=== PATIENT | female | born 1940 | race Caucasian/White ===

== ENCOUNTER 2016-12-16 19:14 | Emergency (ER) | payer MEDICARE, OTHER ==
[2016-12-16 19:22] VITALS: BMI 28.4
[2016-12-16 19:27] VITALS: TEMP 98.7
[2016-12-16] MEDS ORDERED: TDAP Vaccine 0.5 mL Syr IM ONE (19:33)
--- NOTE | 2016-12-16 19:33 | ED PDOC ---
Arrival/HPI <Ant Gaming - Last Filed: 12/16/16 20:04> - General Historian: Patient <Marvin Berry - Last Filed: 12/25/16 14:41> - General Time Seen by Provider: 12/16/16 19:24 - History of Present Illness Narrative History of Present Illness (Text): 12/16/16 19:36 76 y/o female, pmh including htn/dm, allergic to penicillin and macrolides, last tetanus over 10 years ago, c/o cat scratch on the lt. vasquez x 1 day. Pt. stated that her cat (stated that her cat is indoor cat for over 15 years, no rabies and stated that belief her rabies is up to date) scratch the lt. vasquez superficially, no numbness or tingling, no palpitation, no night sweat, no dizziness, no other medical or psychological complaints. (Marvin Berry) Past Medical History - Provider Review Nursing Documentation Reviewed: Yes - Infectious Disease Hx of Infectious Diseases: None - Cardiac Hx KS: Yes (x2 stents) Hx Hypertension: Yes - Endocrine/Metabolic Hx Diabetes Mellitus Type 2: Yes - Psychiatric Hx Substance Use: No - Surgical History Hx Cardiac Catheterization: Yes (x2 stents) Hx Orthopedic Surgery: Yes (L knee torn meniscus) - Anesthesia Hx Anesthesia: Yes Hx Anesthesia Reactions: No Hx Malignant Hyperthermia: No <Marvin Berry - Last Filed: 12/25/16 14:41> Family/Social History - Physician Review Nursing Documentation Reviewed: Yes Family/Social History: Unknown Family HX Smoking Status: Never Smoked Hx Alcohol Use: No Hx Substance Use: No <Marvin Berry - Last Filed: 12/25/16 14:41> Allergies/Home Meds <Ant Gaming - Last Filed: 12/16/16 20:04> <Marvin Berry - Last Filed: 12/25/16 14:41> Allergies/Adverse Reactions: Allergies Penicillins Allergy (Verified 12/16/16 19:26) SWELLING streptomycin Allergy (Verified 12/16/16 19:26) SWELLING Review of Systems - Review of Systems Constitutional: absent: Fatigue, Fevers Eyes: absent: Vision Changes ENT: absent: Hearing Changes Respiratory: absent: SOB, Cough Cardiovascular: absent: Chest Pain Gastrointestinal: absent: Abdominal Pain, Nausea, Vomiting Skin: Other (abrasion). absent: Rash, Pruritis, Abscess, Ulcer Neurological: absent: Headache, Dizziness <Marvin Berry - Last Filed: 12/25/16 14:41> Physical Exam Vital Signs Reviewed: Yes Temperature: Afebrile Blood Pressure: Hypertensive Pulse: Regular Respiratory Rate: Normal Appearance: Positive for: Well-Appearing, Non-Toxic, Comfortable Pain Distress: None Mental Status: Positive for: Alert and Oriented X 3 - Systems Exam Head: Present: Atraumatic, Normocephalic Pupils: Present: PERRL Extroacular Muscles: Present: EOMI Conjunctiva: Present: Normal Mouth: Present: Moist Mucous Membranes Neck: Present: Normal Range of Motion Respiratory/Chest: Present: Clear to Auscultation, Good Air Exchange. No: Respiratory Distress, Accessory Muscle Use Cardiovascular: Present: Regular Rate and Rhythm, Normal S1, S2. No: Murmurs Abdomen: Present: Normal Bowel Sounds. No: Tenderness, Distention, Peritoneal Signs Back: Present: Normal Inspection Upper Extremity: Present: Normal Inspection. No: Cyanosis, Edema Lower Extremity: Present: Normal Inspection, Other (Lt. anterior Vasquez visible superficial approx. 4cm abrasion with no laceration or avulsion, no bony tenderness. ). No: Edema Neurological: Present: GCS=15, Speech Normal, Motor Func Grossly Intact, Gait Normal, Memory Normal Skin: Present: Warm, Dry, Normal Color. No: Rashes Psychiatric: Present: Alert, Oriented x 3, Normal Insight, Normal Concentration <Marvin Berry - Last Filed: 12/25/16 14:41> Vital Signs Temp Pulse Resp BP Pulse Ox 12/16/16 20:54 79 16 143/79 96 12/16/16 20:30 82 179/81 H 12/16/16 19:55 82 14 179/81 H 99 12/16/16 19:27 98.7 F 91 H 18 173/81 H 97 Medical Decision Making <Ant Gaming - Last Filed: 12/16/16 20:04> <Marvin Berry - Last Filed: 12/25/16 14:41> ED Course and Treatment: 12/16/16 19:42 -I offered and suggest rabies vaccine and rabies immunoglobulin but patient refused, risk and benefits explained, pt. stated that her cat is indoor cat. -Clindamycin and bactrim ds po ordered as it will cover MRSA and pasturella. Due to the fact that the cat do lick the palm, clinically there is consider as superficial bite -Tdap ordered -Wound irrigate with 1000cc of normal saline, clean with betadine, bacitracin and gauze dressing. -Case discussed with Dr. Gaming and he agreed on the diagnosis/treatment and dispo plan. -Discharge home with clindamycin, bactrim ds, bacitracin ointment, clean the wound twice daily with soap and water, follow up with your own pmd and infectious disease within 2 days, observe your cat for any abnormal behaviors which it can indicate rabies which you immediately will need to get rabies vaccine and rabies immunoglobulin, return to the ER for any new or worsening signs or symptoms. 12/16/16 20:03 -BP elevated noted, asymptomatic, no cardiopulmonary or neurological complaints , clonidine 0.1mg po ordered and will keep her in the ER until BP decreased to 160s systolic. (Marvin Berry) - Medication Orders Current Medication Orders: Discontinued Medications Clindamycin HCl (Cleocin) 150 mg PO STAT STA PRN Reason: Protocol Stop: 12/16/16 19:36 Last Admin: 12/16/16 19:49 Dose: 150 mg Clonidine HCl (Catapres) 0.1 mg PO STAT STA Stop: 12/16/16 20:04 Last Admin: 12/16/16 20:30 Dose: 0.1 mg Tetanus/Reduced Diphtheria/Acell Pertussis (Boostrix Vaccine Inj) 0.5 ml IM .ONCE ONE Stop: 12/16/16 19:34 Last Admin: 12/16/16 19:45 Dose: 0.5 ml Trimethoprim/Sulfamethoxazole (Bactrim Ds Tab) 1 tab PO STAT STA PRN Reason: Protocol Stop: 12/16/16 19:40 Last Admin: 12/16/16 20:30 Dose: 1 tab - PA / EMERGENCY NURSE / Resident Statement URIEL has reviewed & agrees with the documentation as recorded. URIEL has examined the patient and agrees with the treatment plan. <Ant Gaming - Last Filed: 12/16/16 20:04> - PA / EMERGENCY NURSE / Resident Statement URIEL has reviewed & agrees with the documentation as recorded. <Marvin Berry - Last Filed: 12/25/16 14:41> Disposition/Present on Arrival <Ant Gaming - Last Filed: 12/16/16 20:04> - Present on Arrival Any Indicators Present on Arrival: No History of DVT/PE: No History of Uncontrolled Diabetes: No Urinary Catheter: No History of Decub. Ulcer: No History Surgical Site Infection Following: None - Disposition Have Diagnosis and Disposition been Completed?: Yes Disposition Time: 19:46 Patient Plan: Discharge <Marvin Berry - Last Filed: 12/25/16 14:41> - Disposition Diagnosis: Cat scratch Disposition: HOME/ ROUTINE Condition: GOOD Prescriptions: Bacitracin Ointment [Bacitracin] 1 appful TOP BID #15 g Clindamycin [Cleocin] 300 mg PO TID #24 cap Sulfamethoxazole/Trimethoprim [Bactrim DS 800 mg-160 mg] 1 tab PO BID #16 tab Referrals: Trever Mccray MD [Staff Provider] - Follow up with primary Forms: WORK NOTE
[2016-12-16] MEDS ORDERED: Tmp-Smz 800 mg-160 mg DS Tab PO STA (19:39)
[2016-12-16 20:55] VITALS: BP 143/79; PULSE 79; RESP 16; O2SAT 96
== END 2016-12-16 20:55 | disposition home or self-care (01) ==
LOC: ED 19:14
DX: S80.812A Abrasion, left lower leg, initial encounter (principal); W55.03XA Scratched by cat, initial encounter; Z23 Encounter for immunization